=== PATIENT | female | born 1980 | race American Indian/Alaskan Native ===

== ENCOUNTER 2017-06-29 11:52 | Emergency (ER) | payer BC ==
--- NOTE | 2017-06-29 13:41 | Emergency Department Report ---
ED Back Pain/Injury HPI - General Chief Complaint: Back Pain/Injury Stated Complaint: LOWER BACK PAIN Time Seen by Provider: 06/29/17 13:37 Source: patient Mode of arrival: Ambulatory Limitations: No Limitations - History of Present Illness MD Complaint: back pain -: week(s) (2) Similar Symptoms Previously: No Severity: severe (dramatic) Quality: aching, other (but rests well) Consistency: constant Improves With: none Worsens With: none Context: unknown Associated Symptoms: other (has been laying in bed not eating or drinking bc it hurts). denies: confusion, weakness, chest pain, numbness, difficulty walking, cough, difficulty urinating, diaphoresis, incontinence, fever/chills, constipation, headaches, abdominal pain, loss of appetite, malaise, nausea/ vomiting, rash, seizure, shortness of breath, syncope Treatments Prior to Arrival: other (lives w and child in home. child was here but came and got her. ) - Related Data Previous Rx's Medication Instructions Recorded Last Taken Type Cyclobenzaprine [Flexeril] 10 mg PO TID PRN #10 tablet 06/29/17 Unknown Rx methylPREDNISolone [Medrol] 4 mg PO DAILY #1 tab.ds.pk 06/29/17 Unknown Rx Allergies Allergy/AdvReac Type Severity Reaction Status Date / Time No Known Allergies Allergy Unverified 06/29/17 12:04 ED Review of Systems ROS: Stated complaint: LOWER BACK PAIN Other details as noted in HPI Comment: Unobtainable due to pts medical conditions Constitutional: no symptoms reported, see HPI. denies: chills, diaphoresis, fever, malaise Eyes: as per HPI. denies: eye pain, eye discharge, vision change ENT: as per HPI. denies: ear pain, throat pain, dental pain, hearing loss, epistaxis Respiratory: no symptoms reported, see HPI. denies: cough, orthopnea, shortness of breath, SOB with exertion, SOB at rest, stridor Cardiovascular: as per HPI, syncope (dizzy when stands). denies: chest pain, palpitations, dyspnea on exertion, orthopnea, edema Endocrine: no symptoms reported, see HPI. denies: excessive sweating, flushing , intolerance to cold, intolerance to heat Gastrointestinal: as per HPI. denies: abdominal pain, nausea, vomiting, diarrhea, constipation, hematemesis, melena, hematochezia Genitourinary: as per HPI. denies: urgency, dysuria, frequency, hematuria, discharge Musculoskeletal: as per HPI, back pain. denies: joint swelling, arthralgia, myalgia Skin: as per HPI. denies: rash, lesions Neurological: as per HPI. denies: headache, weakness Psychiatric: as per HPI. denies: anxiety, depression Hematological/Lymphatic: as per HPI. denies: easy bleeding ED Past Medical Hx - Past Medical History Additional medical history: obese - Surgical History Past Surgical History?: No - Family History Family history: no significant - Social History Smoking Status: Never Smoker Substance Use Type: None - Medications Home Medications: Home Medications Medication Instructions Recorded Confirmed Last Taken Type Cyclobenzaprine [Flexeril] 10 mg PO TID PRN #10 tablet 06/29/17 Unknown Rx methylPREDNISolone [Medrol] 4 mg PO DAILY #1 tab.ds.pk 06/29/17 Unknown Rx ED Physical Exam - General Limitations: No Limitations General appearance: alert - Head Head exam: Present: atraumatic - Eye Eye exam: Present: PERRL - ENT ENT exam: Present: normal exam, mucous membranes moist - Neck Neck exam: Present: normal inspection. Absent: tenderness, meningismus - Respiratory Respiratory exam: Present: normal lung sounds bilaterally. Absent: respiratory distress, wheezes, rales, rhonchi, stridor - Cardiovascular Cardiovascular Exam: Present: regular rate, tachycardia - GI/Abdominal GI/Abdominal exam: Present: soft, normal bowel sounds. Absent: distended, tenderness, guarding, rebound, rigid, diminished bowel sounds - Rectal Rectal exam: Present: deferred - External exam: Present: normal external exam - Back Exam Back exam: Present: normal inspection, full ROM. Absent: tenderness, CVA tenderness (R), CVA tenderness (L), muscle spasm, paraspinal tenderness, vertebral tenderness - Neurological Exam Neurological exam: Present: alert, oriented X3 - Psychiatric Psychiatric exam: Present: normal affect, normal mood, anxious - Skin Skin exam: Present: warm, dry, intact, normal color. Absent: rash ED Course Vital Signs 06/29/17 06/29/17 06/29/17 12:00 15:55 17:49 Temperature 98.5 F 99.5 F 99.3 F Pulse Rate 120 H 84 95 H Respiratory 22 18 20 Rate Blood Pressure 153/99 Blood Pressure 149/95 131/97 [Right] O2 Sat by Pulse 98 100 100 Oximetry 06/29/17 18:45 Temperature Pulse Rate Respiratory 18 Rate Blood Pressure Blood Pressure [Right] O2 Sat by Pulse Oximetry - Reevaluation(s) Reevaluation #1: 06/29/17 to er today w lbp child w her no dysuria no concern std preg neg lmp noted no trauma no fall abc intact no fever no cva tenderness abd benign no rad of pain Reevaluation #2: 06/29/17 18:00 ua w ketones bs low pt states she has been hurting so she did not get up to eat taking po here fluids given iv medicated for pain labs noted vs improved. discussed findings w pt. her remains inc so 2nd l of fluids given xray ordered plan: fluids medicate reassess and dispo to ortho/pcp. Reevaluation #3: 06/29/17 19:34 feeling better vss. dc home w dc poc ED Medical Decision Making - Lab Data Result diagrams: 06/29/17 16:21 06/29/17 16:21 - Radiology Data Radiology results: image reviewed - Medical Decision Making see chart - Differential Diagnosis musculokeletal v urinary related Critical care attestation.: If time is entered above; I have spent that time in minutes in the direct care of this critically ill patient, excluding procedure time. ED Disposition Clinical Impression: Back pain, Dehydration, Hypoglycemia Disposition: DC-01 TO HOME OR SELFCARE Is pt being admited?: No Does the pt Need Aspirin: No Condition: Stable Instructions: Dehydration (ED), Non-diabetic Hypoglycemia (ED), Acute Low Back Pain (ED) Additional Instructions: you have got to eat and drink even if back hurts water water water eat a banana or other potassium rich food every day meds as ordered today follow up with pcp on Saturday warm compresses to back continue flexeril and motrin Prescriptions: Cyclobenzaprine [Flexeril] 10 mg PO TID PRN #10 tablet PRN Reason: Muscle Spasm methylPREDNISolone [Medrol] 4 mg PO DAILY #1 tab.ds.pk Referrals: PRIMARY CARE, [Primary Care Provider] - 3-5 Days RYAN BERNAL MD [Staff Physician] - 3-5 Days GINO ARRIETA MD [Staff Physician] - 3-5 Days Time of Disposition: 18:46
[2017-06-29 14:49] LABS: Bilirubin,Urine NEG (Negative); Blood,Urine NEG (Negative); Ketones,Urine 20 mg/dL (Negative); Leukocyte Esterase,Urine NEG (Negative); Mucus,Urine FEW /HPF; Nitrite,Urine NEG (Negative); Urobilinogen,Urine < 2.0 mg/dL (<2.0)
[2017-06-29] MEDS ORDERED: NACL 0.9% 1000 ML 1,000 ML IV ONE ×2 (15:58→18:03)
[2017-06-29 17:04] LABS: Alanine Aminotransferase 43 units/L (7-56); Albumin 4.2 g/dL (3.9-5); Albumin/Globulin Ratio 1.1 %; Alkaline Phosphatase 67 units/L (35-129); Anion Gap 19 mmol/L; Blood Urea Nitrogen 8 mg/dL (7-17); Calcium 8.9 mg/dL (8.4-10.2); Carbon Dioxide 24 mmol/L (22-30); Glucose 78 mg/dL (65-100); Potassium 3.4 mmol/L (3.6-5.0); Sodium 139 mmol/L (137-145); Total Protein 7.9 g/dL (6.3-8.2)
[2017-06-29 17:08] LABS: Hematocrit 36.6 % (30.3-42.9); Hemoglobin 11.9 gm/dl (10.1-14.3); Mean Corpuscular HGB Conc 32 % (30-34); Mean Corpuscular Hemoglobin 27 pg (28-32); Mean Corpuscular Volume 82 fl (79-97); Platelet Count 204 K/mm3 (140-440); Red Blood Count 4.44 M/mm3 (3.65-5.03); White Blood Count 4.8 K/mm3 (4.5-11.0)
[2017-06-29] MEDS ORDERED: K-DUR PO ONE (17:16)
[2017-06-29] MEDS ORDERED: NORCO 5/325 PO ONE (17:30)
[2017-06-29 17:50] VITALS: BP 131/97
[2017-06-29 17:59] LABS: Basophils % (Manual) 0 % (0.0-1.8); Blastocytes % (Manual) 0 %; Diff Status Complete; Eosinophils % (Manual) 0 % (0.0-4.3); Hypochromasia 1+
[2017-06-29] MEDS ORDERED: TORADOL IV ONE (18:04)
--- NOTE | 2017-06-29 19:31 | XRay Report ---
FINAL REPORT PROCEDURE: XR SPINE LUMBOSACRAL 2-3V TECHNIQUE: Lumbar spine, three views HISTORY: Low back pain COMPARISON: No prior studies are available for comparison. FINDINGS: The vertebral body heights and alignment are maintained. There are mild degenerative disc changes from L2-3 through L4-5, with small anterior osteophytes seen. No scoliosis. The disc spaces are preserved. There is layering high density material in the right upper abdomen, possibly related to layering gallstones or possibly milk of calcium within a renal cyst. IMPRESSION: Minimal degenerative disc changes of the lumbar spine. Layering high density material in the right upper abdomen may be related to gallstones or possibly milk of calcium in a renal cyst
== END 2017-06-29 20:45 | disposition home or self-care (01) ==
LOC: ED 11:52
DX: M54.5 Low back pain (principal); E86.0 Dehydration; E16.2 Hypoglycemia, unspecified
CPT/HCPCS: 36415; 72100; 80053; 81001; 81025; 82550; 82962; 85007; 85025; 96361; 96374; 99284; J1885; J7030